=== PATIENT | male | born 1990 | race American Indian/Alaskan Native ===

== ENCOUNTER 2024-06-15 00:04 | Inpatient (IN) | payer MEDICAID ==
[~2024-06-15] VITALS: Ht 172.7 cm; Wt 80.7 kg
[2024-06-16 02:12] VITALS: BP 126/84; PULSE 77; RESP 16; TEMP 98.6; O2SAT 97
[2024-06-16] MEDS ORDERED: PNEUMOCOCCAL VACCINE POLYVALENT 0.5 ML SYRINGE [PPSV23] IM. ONE (02:30)
[2024-06-16] MEDS: HALOPERIDOL 5 MG TABLET PO PRN (02:40)
[2024-06-16] MEDS: ZOLPIDEM TARTRATE 10 MG TABLET PO PRN (02:40)
[2024-06-16 08:45] VITALS: RESP 16
[2024-06-16] MEDS ORDERED: GuaiFENesin/D-METHORPHAN [SUGAR-FREE] 200-20MG/10 ML SYRUP UDCUP PO PRN (09:15)
[2024-06-16] MEDS ORDERED: PETROLATUM,WHITE 28 GM JELLY TP PRN (09:15)
[2024-06-16] MEDS ORDERED: MAGNESIUM HYDROXIDE SUSPENSION 30 ML UDCUP PO PRN (09:15)
[2024-06-16] MEDS ORDERED: DOCUSATE SODIUM 100 MG CAPSULE PO PRN (09:15)
[2024-06-16] MEDS ORDERED: MAG HYDROX/ALUMINUM HYD/SIMETH ES 30 ML SUSPENSION UDCUP PO PRN (09:15)
[2024-06-16] MEDS ORDERED: ONDANSETRON 4 MG TABLET PO PRN (09:15)
[2024-06-16] MEDS ORDERED: LOPERAMIDE HCL 2 MG CAPSULE PO PRN (09:15)
[2024-06-16] MEDS ORDERED: IBUPROFEN 400 MG TABLET PO PRN (09:15)
[2024-06-16] MEDS ORDERED: ACETAMINOPHEN 325 MG TABLET PO PRN (09:15)
[2024-06-16] MEDS ORDERED: CloNIDine HCL 0.1 MG TABLET PO PRN (09:15)
[2024-06-16] MEDS: LORazepam 2 MG TABLET PO PRN (10:03)
[2024-06-16] MEDS: NICOTINE 14 MG/24 HOUR PATCH TD PRN (10:07)
[2024-06-16] MEDS: QUEtiapine FUMARATE 25 MG TABLET PO SCH (16:39)
[2024-06-16 21:44] VITALS: BP 109/67; PULSE 70; RESP 18; TEMP 97.5; O2SAT 100
[2024-06-17 08:26] LABS: HEMOGLOBIN A1C 5.1 % (3.8-5.6)
[2024-06-17 08:45] LABS: CHOL/HDL RATIO 2.5 (4.2-7.3); THYROID STIMULATING HORMONE 0.5 uIU/mL (0.36-3.74)
[2024-06-17 08:51] VITALS: BP 133/90; PULSE 100; RESP 16; TEMP 99.5; O2SAT 97
[2024-06-17] MEDS ORDERED: DiphenhydrAMINE HCL 50 MG/ML VIAL ONE (11:02)
[2024-06-17] MEDS ORDERED: LORazepam 2 MG/ML VIAL ONE (11:02)
[2024-06-17] MEDS ORDERED: HALOPERIDOL LACTATE 5 MG/ML VIAL ONE (11:02)
[2024-06-17] MEDS: DiphenhydrAMINE HCL 50 MG/ML VIAL IM ONE (12:06)
[2024-06-17] MEDS: ALBUTEROL SULFATE HFA 90 MCG/PUFF 8 GM INHALER IH PRN (12:07)
[2024-06-17] MEDS: LORazepam 2 MG/ML VIAL IM ONE (12:07)
[2024-06-17] MEDS: HALOPERIDOL LACTATE 5 MG/ML VIAL IM ONE (12:07)
[2024-06-17 20:13] VITALS: RESP 18
[2024-06-18 09:17] VITALS: RESP 16
== END 2024-06-18 16:04 | disposition left against medical advice (07) | DRG 751 ==
LOC: B2S 06-16 00:53 → B3A 06-17 13:57
PROVIDERS: ADMIT Psychiatry & Neurology Child & Adolescent Psychiatry; ATTEND Psychiatry & Neurology Child & Adolescent Psychiatry
PROC: GZ52ZZZ Individual Psychotherapy, Cognitive (ICD-10-PCS; principal; 2024-06-16)
PROC: GZ56ZZZ Individual Psychotherapy, Supportive (ICD-10-PCS; 2024-06-16)
DX: F32.3 Major depressive disorder, single episode, severe with psychotic features (principal); F19.10 Other psychoactive substance abuse, uncomplicated; J45.909 Unspecified asthma, uncomplicated; I10 Essential (primary) hypertension; F41.9 Anxiety disorder, unspecified; G47.00 Insomnia, unspecified; Z53.29 Procedure and treatment not carried out because of patient's decision for other reasons
CPT/HCPCS: 80061; 83036; 84443; 90732; J1200; J1630; J2060; J3535

== ENCOUNTER 2024-06-15 22:44 | Emergency (ER) | payer SELFPAY ==
[~2024-06-15] VITALS: Ht 170.2 cm; Wt 81.8 kg
[2024-06-15 22:53] VITALS: TEMP 98.4
[2024-06-15 23:27] LABS: BASOPHILS % (AUTO) 0.8 % (0.0-2.0); EOSINOPHILS % (AUTO) 0.7 % (1.0-6.0); HEMATOCRIT 45.9 % (41-53); HEMOGLOBIN 15.7 g/dL (13.5-17.5); LYMPHOCYTES # (AUTO) 2.1 K/uL (1.0-4.8); LYMPHOCYTES % (AUTO) 42.8 % (22.0-44.0); MEAN CORPUSCULAR HEMOGLOBIN 29.2 pg (26.0-34.0); MEAN CORPUSCULAR HGB CONC 34.2 G/dL (31.0-37.0); MEAN CORPUSCULAR VOLUME 85 fL (80-100); MONOCYTES # (AUTO) 0.4 K/uL (0.1-1.0); MONOCYTES % (AUTO) 9.1 % (2.0-9.0); NEUTROPHILS # (AUTO) 2.2 K/uL (1.8-7.7); NEUTROPHILS % (AUTO) 46.6 % (40.0-70.0); PLATELET COUNT (AUTO) 402 K/uL (150-450); RED BLOOD CELL COUNT(AUTO) 5.37 MIL/uL (4.50-5.90); WHITE BLOOD COUNT (AUTO) 4.8 K/uL (4.5-11.0)
[2024-06-15 23:41] LABS: ANION GAP 11 mmol/L (8-16); CALCIUM, TOTAL 9.6 mg/dL (8.8-10.5); CARBON DIOXIDE 25 mmol/L (22-29); CHLORIDE 105 mmol/L (98-107); CREATININE 0.79 mg/dL (0.60-1.30); GLOMERULAR FILTR. RATE CALC > 60 mL/min (>60); GLUCOSE,RANDOM 94 mg/dL (70-110); SODIUM SERUM 141 mmol/L (136-145); UREA NITROGEN, BLOOD 19 mg/dL (7-18)
[2024-06-15 23:56] LABS: COVID AG,FIA SOURCE NASAL SWAB
[2024-06-16 00:02] LABS: APPEARANCE,URINE CLEAR (CLEAR); BILIRUBIN,URINE NEGATIVE (NEGATIVE); COLOR,URINE LIGHT YELLOW (YELLOW); GLUCOSE, URINE (UA) NEGATIVE (NEGATIVE); KETONES,URINE NEGATIVE (NEGATIVE); LEUKOCYTE ESTERASE ,URINE NEGATIVE (NEGATIVE); NITRATE,URINE NEGATIVE (NEGATIVE); OCCULT BLOOD,URINE NEGATIVE (NEGATIVE); PH,URINE 5.5 (5.0-8.0); PH,URINE DRUG SCREEN 5.5 (5.0-8.0); PROTEIN,URINE NEGATIVE (NEGATIVE); UROBILINOGEN,URINE <=1.0 mg/dL (<=1.0)
[2024-06-16 00:07] LABS: SARS-COV2 (COVID) ANTIGEN,FIA Negative (Negative)
[2024-06-16 00:10] LABS: ALCOHOL, URINE DRUG SCREEN NEGATIVE (NEGATIVE); AMPHET/METH SCREEN,URINE NEGATIVE (NEGATIVE); BARBITURATE SCREEN, URINE NEGATIVE (NEGATIVE); BENZODIAZEPINES SCREEN,URINE NEGATIVE (NEGATIVE); CANNABINOID SCREEN,URINE POSITIVE (NEGATIVE); COCAINE SCREEN,URINE NEGATIVE (NEGATIVE); METHADONE SCREEN, URINE NEGATIVE (NEGATIVE); OPIATE SCREEN,URINE NEGATIVE (NEGATIVE); PHENCYCLIDINE SCREEN,URINE NEGATIVE (NEGATIVE)
[2024-06-16 00:13] LABS: BACTERIA,URINE None Seen /HPF (None Seen); RBC,URINE None Seen /HPF (0-2); SQUAMOUS EPITHELIAL CELL,UR Few /LPF (None Seen); WBC,URINE None Seen /HPF (0-5)
[2024-06-16 00:35] VITALS: BP 127/87; PULSE 95; RESP 16; O2SAT 96
== END 2024-06-16 02:40 | disposition home or self-care (01) ==
LOC: EMS 22:46
DX: Z00.8 Encounter for other general examination (principal); F12.90 Cannabis use, unspecified, uncomplicated; Z20.822 Contact with and (suspected) exposure to COVID-19
CPT/HCPCS: 80048; 80307; 81001; 85025; 99285